=== PATIENT | female | born 1970 | race Caucasian/White ===

== ENCOUNTER 2017-09-21 09:58 | Emergency (ER) | payer MEDICAID, OTHER ==
[2017-09-21 10:11] VITALS: BMI 27.4
[2017-09-21 10:16] VITALS: RESP 18; TEMP 98
[2017-09-21] MEDS ORDERED: TDAP Vaccine 0.5 mL Syr IM ONE (10:28)
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
--- NOTE | 2017-09-21 11:59 | CT ---
PROCEDURE: CT HEAD WITHOUT CONTRAST. HISTORY: head injury r/o ich COMPARISON: None available. TECHNIQUE: Axial computed tomography images were obtained through the head/brain without intravenous contrast. Radiation dose: Total exam DLP = 838.84 mGy-cm. This CT exam was performed using one or more of the following dose reduction techniques: Automated exposure control, adjustment of the mA and/or kV according to patient size, and/or use of iterative reconstruction technique. FINDINGS: HEMORRHAGE: No intracranial hemorrhage. BRAIN: No mass effect or edema. No atrophy or chronic microvascular ischemic changes. VENTRICLES: Unremarkable. No hydrocephalus. CALVARIUM: No fracture. Sutures in high right parietal vertex scalp. PARANASAL SINUSES: Unremarkable as visualized. No significant inflammatory changes. MASTOID AIR CELLS: Unremarkable as visualized. No inflammatory changes. OTHER FINDINGS: None. IMPRESSION: No acute intracranial hemorrhage.
[2017-09-21 12:00] VITALS: BP 118/71
--- NOTE | 2017-09-21 12:16 | CT ---
PROCEDURE: CT Cervical Spine without contrast HISTORY: fall r/o fx COMPARISON: None available. TECHNIQUE: Axial computed tomography images were obtained of the cervical spine without the use of intravenous contrast. Coronal and sagittal reformatted images were created and reviewed. Radiation dose: Total exam DLP = 426.35 mGy-cm. This CT exam was performed using one or more of the following dose reduction techniques: Automated exposure control, adjustment of the mA and/or kV according to patient size, and/or use of iterative reconstruction technique. FINDINGS: VERTEBRAE: No fracture. Normal alignment. No destructive bony lesion. DISCS/SPINAL CANAL/NEURAL FORAMINA: No significant central canal or neural foraminal stenosis. Discs heights are grossly preserved. PARASPINAL SOFT TISSUES: Unremarkable. OTHER FINDINGS: None. IMPRESSION: Unremarkable CT of the cervical spine.
[2017-09-21 12:36] VITALS: PULSE 79; O2SAT 99
== END 2017-09-21 12:37 | disposition home or self-care (01) ==
LOC: ED 09:58
DX: S16.1XXA Strain of muscle, fascia and tendon at neck level, initial encounter (principal); W03.XXXA Other fall on same level due to collision with another person, initial encounter; Y92.89 Other specified places as the place of occurrence of the external cause; Y99.8 Other external cause status; S01.01XA Laceration without foreign body of scalp, initial encounter; Z23 Encounter for immunization